=== PATIENT | female | born 1955 | race Caucasian/White ===

== ENCOUNTER 2023-07-05 13:01 | Outpatient (AMB) | payer MEDICARE, SELFPAY ==
--- NOTE | 2023-07-05 13:03 | MHC.OFFWIV ---
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) Intake Note: pt is here today for lft ear infection started Allergies Penicillins Adverse Reaction (Mild, Verified 07/05/23 13:03) UPSET STOMACH Do you need a note to return to daycare/school/sports/work: No Physical Exam Vital Signs: Last Vital Signs Temp 98.0 F 07/05/23 13:09 Pulse 118 H 07/05/23 13:09 BP 140/80 H 07/05/23 13:09 Pulse Ox 96 07/05/23 13:09 Oxygen Delivery Method Room Air 07/05/23 13:09 Office Procedures Cerumen Removal From which ear canal was the cerumen removed: left Removal: irrigation and otoscope w/curette Notes: patient tolerated procedure well [id number] Wax Removal by Spoon/Curette Assessment & Plan Assessment & Plan (1) Decreased hearing of left ear: Code(s): H91.92 - Unspecified hearing loss, left ear Plan: On my exam of the ear, there is partial accumulation of wax with a ear canal which is congested. When we were about to clean it, patient reports she has a prior history of TM rupture and is on abx from her PCP who saw her last week. No ear lavage was done. Patient was advised to follow up with her PCP and get an ENT referral. Orders: Orders AMB Cerumen Removal Today H61.23 - Impacted cerumen, bilateral Coding Level of Care Code Est Pt Level 3 (37692) Diagnoses Decreased hearing of left ear H91.92 CPT Codes Office Procedure - CPT: 98278-Jjk Wax Removal by Spoon/Curette ([id number])
[2023-07-05 13:09] VITALS: BP 140/80; PULSE 118; TEMP 36.7; O2SAT 96
== END 2023-07-05 14:21 | disposition home or self-care (01) ==
PROVIDERS: PCP Hospitalist; Visit Provider Internal Medicine
DX: H91.92 Unspecified hearing loss, left ear (principal)
CPT/HCPCS: 69210; 99213

== ENCOUNTER 2023-08-06 11:37 | Outpatient (AMB) | payer MEDICARE, SELFPAY ==
--- NOTE | 2023-08-06 11:42 | AM.OFFWIN_ITS ---
Intake Vital Signs 08/06/23 11:43 Height 5 ft 6 in Weight 219 lb BMI 35.3 BP 140/80 H Blood Pressure Location Lt brachial Position Sitting Pulse 120 H Pulse Source Pulse Oximeter Temp 98.3 F Temp Source Temporal Artery Scan Pulse Oximetry (%) 96 Oxygen Delivery Method Room Air Intake Visit Reasons: EP Sore throat, Cough, Headache Intake Note: pt is here today for sore throat cough headache started 2 days ago Patient Tobacco Use Status: Never used Tobacco Allergies Penicillins Adverse Reaction (Mild, Verified 08/06/23 11:47) UPSET STOMACH Medication List - Last Reconciled 08/06/23 by Mao Sherwood MD amlodipine 5 mg PO DAILY metformin 1,000 mg PO BID sertraline 50 mg PO DAILY Do you need a note to return to daycare/school/sports/work: No HPI EP Sore throat, Cough, Headache HPI0 Details Patient presents for a sick visit. Reporting symptoms of sinus congestion, sore throat and difficulty swallowing. Low-grade fever. No family member is sick. No recent travel. Patient reports symptoms of malaise and fatigue. PFSH Social History Patient Tobacco Use Status: Never used Tobacco Physical Exam Vital Signs: Last Vital Signs Temp 98.3 F 08/06/23 11:43 Pulse 120 H 08/06/23 11:43 BP 140/80 H 08/06/23 11:43 Pulse Ox 96 08/06/23 11:43 Oxygen Delivery Method Room Air 08/06/23 11:43 BMI result Body Mass Index 35.3 Const General: cooperative and healthy appearing Nutritional Appearance: well nourished Orientation/consciousness: patient oriented x3 Limitations: no limitations HEENT Head: Yes normal to inspection Eyes General: appearance normal, both eyes and all related structures Neck Neck: Yes normal visual inspection Chest Chest palpation & inspection: normal palpation of entire chest wall Resp Effort & Inspection: normal respiratory effort Neuro General: patient oriented x3 Assessment & Plan Assessment & Plan (1) Upper respiratory tract infection: Code(s): J06.9 - Acute upper respiratory infection, unspecified Plan: Antibiotics ordered. Increase fluid intake. Tylenol for aches and pains. If symptoms worsen, follow-up here for a recheck. Coding Level of Care Code Est Pt Level 3 (63731) Diagnoses Upper respiratory tract infection J06.9
[2023-08-06 11:43] VITALS: BP 140/80; PULSE 120; TEMP 36.8; O2SAT 96; BMI 35.3
== END 2023-08-06 12:53 | disposition home or self-care (01) ==
PROVIDERS: PCP Hospitalist; Visit Provider Internal Medicine
DX: J06.9 Acute upper respiratory infection, unspecified (principal)
CPT/HCPCS: 99213

== ENCOUNTER 2023-08-06 16:23 | Outpatient (REF) | payer MEDICARE, SELFPAY ==
[2023-08-06 17:06] LABS: Influenza A PCR NEGATIVE (Negative); Influenza B PCR NEGATIVE (Negative); Resp Syncy Virus RNA Qual PCR NEGATIVE (Negative); SARS COV2 PCR INHOUSE NEGATIVE (Negative)
== END 2023-08-06 16:24 | disposition home or self-care (01) ==
LOC: HO.LNP 16:23
PROVIDERS: Visit Provider Internal Medicine
DX: R43.9 Unspecified disturbances of smell and taste (principal); Z11.52 Encounter for screening for COVID-19; Z20.828 Contact with and (suspected) exposure to other viral communicable diseases
CPT/HCPCS: 0241U

== ENCOUNTER 2024-05-01 09:38 | Outpatient (AMB) | payer MEDICARE, SELFPAY ==
--- OUTSIDE RECORDS SUMMARY | 2024-05-01 09:39 | XMS_ITS | Continuity of Care Document ---
Author Organization [facility] Address [address] [place] [address]- Care Team Providers Care Government Property Inspector Name Role Phone Roseline Gillette Primary Care Physician Encounter [facility] [place] Date(s): 03/03/24 - 04/02/24 [facility] [address] [place] [address]- Encounter Type: Triage Allergies, Adverse Reactions, Alerts No Known Allergies Immunizations Given and Recorded Vaccine Date Status Refusal Reason influenza virus vaccine, inactivated 01/20/24 Rico rded influenza virus vaccine, inactivated 1 02/10/23 Gi romaine influenza virus vaccine, inactivated 02/10/22 Give n influenza virus vaccine, inactivated 02/21/21 Rico rded influenza virus vaccine, inactivated 2 02/07/20 Gi romaine influenza virus vaccine, inactivated 02/23/18 Rico rded influenza virus vaccine, inactivated 02/20/18 Rico rded influenza virus vaccine, inactivated 02/10/17 Give n influenza virus vaccine, inactivated 3 02/20/16 Re corded influenza virus vaccine, inactivated 4 03/30/15 Gi romaine SARS-CoV-2(COVID-19)mRNA-LNP vac([id number]) 01/20/24 Recorded SARS-CoV-2(COVID-19)mRNA-LNP vac([id number]) 01/20/23 Recorded [id number] 12y+ bivalent booster vax 02/19/22 Recorded SARS-CoV-2 mRNA ([id number]) vax 10/27/21 Recorded SARS-CoV-2 (COVID-19) mRNA BNT-162b2 vac 03/07/21 Recorded SARS-CoV-2 (COVID-19) mRNA BNT-162b2 vac 08/03/20 Recorded SARS-CoV-2 (COVID-19) mRNA BNT-162b2 vac 07/13/20 Recorded Influenza Virus Vaccine (oldterm) 5 03/14/19 Recor ded tetanus-diphtheria toxoids (Td) 04/19/18 Recorded zoster vaccine, inactivated 11/17/17 Recorded zoster vaccine, inactivated 08/12/17 Recorded pneumococcal 23-valent vaccine 08/11/12 Given Fluarix (oldterm) 6 02/13/11 Given Tet/diphth/pertussis, acel (oldterm) 7 12/29/10 Gi romaine 1Result Comment: [facility]: [id number] 2Result Comment: [id number] 3Result Comment: [02/21/2016] [facility] 4Admin Note: Grace 5Result Comment: Grace 6Admin Note: REFUSED 7Admin Note: 7-10 AT OLD PCP OFFICE Medications amLODIPine 5 mg oral tablet 1 tablet, By Mouth, Daily, # 90 tablet, 0 Refills, Maintenance, 01/29/24 6:25:00 AM EDT, [id number], 166, cm, 07/08/23 9:20:00 EST, Height Start Date: 01/29/24 Status: Ordered Quantity: 90.0 Unit: tablet Repeat number: 1 FreeStyle Lite Glucometer FreeStyle Lite Glucometer, See Instructions, # 1 each, Refills 0, Tot. Refills 0, Maintenance, Dx: Diabetic type 2 (E11.9) Use to check blood sugars twice a day, 01/27/23 3:40:00 PM EDT, Supply, 166, cm, 08/11/22 14:39:00 EDT, Height Start Date: 01/27/23 Status: Ordered Quantity: 1.0 Unit: each Repeat number: 1 FreeStyle Lite Lancets FreeStyle Lite Lancets, See Instructions, # 100 each, Refills 11, Tot. Refills 11, Maintenance, Dx:Diabetic type 2 (E11.9) Use to check blood sugars twice a day, 01/27/23 3:40:00 PM EDT, Supply, 166,cm, 08/11/22 14:39:00 EDT, Height Start Date: 01/27/23 Status: Ordered Quantity: 100.0 Unit: each Repeat number: 12 FreeStyle Lite Test Strips FreeStyle Lite Test Strips, See Instructions, # 100 each, Refills 11, Tot. Refills 11, Maintenance,Dx: Diabetic type 2 (E11.9) Use to check blood sugars twice a day, 01/27/23 3:40:00 PM EDT, Supply, 166, cm, 08/11/22 14:39:00 EDT, Height Start Date: 01/27/23 Status: Ordered Quantity: 100.0 Unit: each Repeat number: 12 hydrochlorothiazide-losartan 25 mg-100 mg oral tablet 1 tablet, By Mouth, Daily, # 90 tablet, 3 Refills, Maintenance, 02/10/23 12:56:00 PM EDT, [facility] #[id number], 1 tablet By Mouth Daily, 166, cm, 02/10/23 12:44:00 EDT, Height Start Date: 02/10/23 Status: Ordered Quantity: 90.0 Unit: tablet Repeat number: 4 hydrOXYzine hydrochloride 50 mg oral tablet 2 tablet = 100 mg, By Mouth, Daily at bedtime, # 180 tablet, 3 Refills, Maintenance, 03/23/24 10:40:00 AM EST, [facility] #[id number], 166, cm, 03/23/24 10:26:00 EST, Height Start Date: 03/23/24 Stop Date: 03/18/25 Status: Ordered Quantity: 180.0 Unit: tablet Repeat number: 4 levothyroxine 0.2 mg oral tablet See Instructions, TAKE 1 TABLET BY MOUTH EVERY DAY AND TAKE 2 TABLETS ON MONDAYS, # 112 tablet, 0 Refills, Maintenance, 12/09/23 10:11:00 AM EDT, [facility] #[id number], 166, cm, 07/08/23 9:20:00 EST, Height Start Date: 12/09/23 Status: Ordered Quantity: 112.0 Unit: tablet Repeat number: 1 metFORMIN 1000 mg oral tablet 1 tablet, By Mouth, 2 times a day, # 180 tablet, 0 Refills, Maintenance, 01/06/24 8:53:00 AM EDT, [facility] #[id number], 166, cm, 07/08/23 9:20:00 EST, Height Start Date: 01/06/24 Status: Ordered Quantity: 180.0 Unit: tablet Repeat number: 1 Metoprolol Succinate ER 100 mg oral tablet, extended release 1 tablet = 100 mg, By Mouth, Daily, # 90 tablet, 3 Refills, Maintenance, 08/11/22 2:59:00 PM EDT, [facility] #[id number], 166, cm, 08/11/22 14:39:00 EDT, Height Start Date: 08/11/22 Stop Date: 08/06/23 Status: Ordered Quantity: 90.0 Unit: tablet Repeat number: 4 One Touch Ultra 2 Glucose Meter See Instructions, # 1 each, Refills 0, Tot. Refills 0, Maintenance, CHECK BLOOD SUGARS TWICE A DAY DM TYPE 2 E11.9, 08/04/21 10:32:00 AM EDT, [facility], 166, cm, 08/04/21 10:16:00 EDT, Height Start Date: 08/04/21 Status: Ordered Quantity: 1.0 Unit: each Repeat number: 1 One Touch Ultra Test Strips See Instructions, # 100 each, Refills 0, Tot. Refills 0, Maintenance, CHECK BLOOD SUGARS TWICE A DAY DM TYPE 2 E11.9, 09/04/21 12:03:00 PM EDT, [facility], 166, cm, 08/04/21 10:16:00 EDT, Height Start Date: 09/04/21 Status: Ordered Quantity: 100.0 Unit: each Repeat number: 1 One Touch Ultra Test Strips See Instructions, # 300 each, Refills 1, Tot. Refills 1, Maintenance, CHECK BLOOD SUGARS TWICE A DAY DM TYPE 2 E11.9, 08/11/22 2:58:00 PM EDT, [facility], 166, cm, 08/11/22 14:39:00 EDT, Height Start Date: 08/11/22 Status: Ordered Quantity: 300.0 Unit: each Repeat number: 2 One Touch UltraSoft Lancets See Instructions, # 100 each, Refills 0, Tot. Refills 0, Maintenance, CHECK BLOOD SUGARS TWICE A DAY DM TYPE 2 E11.9, 08/04/21 10:32:00 AM EDT, [facility], 166, cm, 08/04/21 10:16:00 EDT, Height Start Date: 08/04/21 Status: Ordered Quantity: 100.0 Unit: each Repeat number: 1 ONE TOUCH ULTRASOFT LANCETS 100'S ONE TOUCH ULTRASOFT LANCETS 100'S, See Instructions, # 100 each, 0 Refills, TEST BLOOD SUGAR TWICE DAILY, 166, cm, 08/04/21 10:16:00 EDT, Height Start Date: 09/04/21 Status: Ordered Quantity: 100.0 Unit: each Repeat number: 1 triamcinolone 0.1% topical cream 1 application, Topically, 2 times a day, # 60 Gm, 0 Refills, Maintenance, 03/23/24 10:49:00 AM EST,Cream, [facility] #[id number], Partial fill upon patient request if the prescription is for a schedule II opioid drug., 1 application Topically 2 times a day,x14 days, 166, cm, 03/23/24 10:26:00EST, Height Start Date: 03/23/24 Stop Date: 04/06/24 Status: Ordered Quantity: 60.0 Unit: g Repeat number: 1 Problem List Condition Confirmation Course Effective Dates Status Health Status Informant Anxiety Confirmed Active Claustrophobia Confirmed Active Diabetes mellitus type II Confirmed Active History of pericardial effusion - viral Confirmed Active Hypercholesterolemia Confirmed 08/11/12 Active Hypertension Confirmed Active Hypothyroidism Confirmed Active Moderate major depression Confirmed Active Morbid obesity Confirmed Active Severe obesity (BMI 35.0-39.9) with comorbidity Confirmed Active Social History Social History Type Response Smoking Status Never smoker entered on: 08/23/13 Sex Sex Representation Female (finding) Patient Care team information Care Team Personnel Name: Roseline Gillette Position: [facility] PCO Associate Professional Member Role: PCP Address: [address] [place] [address]- Telecom: Care Team Related Persons Name: IZABEL FAIRBANKS Name: NICHOLE FLOREZ Insurance Providers Guarantor name: EVERETTE FAIRBANKS Health Plan Information #: 1 Payer: [employer] ADV PPO Member Number: NA Policy Number: NA Group Number: [id number]
--- NOTE | 2024-05-01 10:23 | MHC.OFFWIV ---
Intake Vital Signs 05/01/24 10:25 Height 5 ft 6 in Weight 216 lb BMI 34.9 BP 122/84 Blood Pressure Location Lt brachial Position Sitting Pulse 77 Pulse Source Pulse Oximeter Temp 98.7 F Temp Source Oral Pulse Oximetry (%) 98 Oxygen Delivery Method Room Air Intake Visit Reasons: EP sore throat, cough, congestion, wheezing Intake Note: Patient here for sore throat, cough, congestion, SOB, fatigue that started on Wednesday. Patient Tobacco Use Status: Never used Tobacco Allergies Penicillins Adverse Reaction (Mild, Verified 05/01/24 10:25) UPSET STOMACH Do you need a note to return to daycare/school/sports/work: No HPI EP sore throat, cough, congestion, wheezing HPI Details This note is constructed using voice recognition software. While every effort has been made to ensure accuracy, loan operations manager errors may have been included. The patient is a 68 year old female who presents to the clinic today with sore throat, cough, congestion for the past 6 days. She notes a low-grade fever 99.3. She denies shortness of breath, body aches. [facility] Social History Patient Tobacco Use Status: Never used Tobacco Review of Systems Const All systems reviewed & are unremarkable except as noted in HPI and below Physical Exam Vital Signs: Last Vital Signs Temp 98.7 F 05/01/24 10:25 Pulse 77 05/01/24 10:25 BP 122/84 05/01/24 10:25 Pulse Ox 98 05/01/24 10:25 Oxygen Delivery Method Room Air 05/01/24 10:25 BMI result Body Mass Index 34.9 Const General: cooperative, healthy appearing, comfortable and no acute distress Orientation/consciousness: patient oriented x3 Limitations: no limitations HEENT Head: Yes normal to inspection Ears: hearing grossly normal bilaterally, external ears normal and TM's normal bilaterally General nose exam: Normal external nose present, Normal nares present and No nasal discharge present Face and sinus: Yes normal facial exam and Yes sinuses nontender Mouth: Normal oral and palatal mucosa present and moist mucous membranes Throat: Yes tonsils normal, Yes uvula midline and Yes posterior oropharynx abnormal (Erythema) Eyes General: appearance normal, both eyes and all related structures Neck Neck: Yes normal visual inspection Resp Effort & Inspection: normal respiratory effort, able to speak in complete sentences, Actively coughing, no respiratory distress, not tachypneic, no tripod positioning and no use of accessory muscles Auscultation: clear to auscultation bilaterally Cardio Jugular venous distension: no JVD Rate: regular rate Rhythm: regular rhythm Heart sounds: S1 normal heart sound present, S2 normal heart sound present, no click, no gallops, no murmurs and no rubs Skin General skin exam: no rashes or lesions noted, elasticity normal and turgor normal Neuro General: patient oriented x3 Extrem General: Yes normal to inspection and Yes no clubbing, cyanosis or edema Assessment & Plan Assessment & Plan (1) Upper respiratory tract infection: Code(s): J06.9 - Acute upper respiratory infection, unspecified Qualifiers: URI type: unspecified URI Qualified Code(s): J06.9 - Acute upper respiratory infection, unspecified Plan: In office rapid strep test negative. Viral swab obtained to rule out Covid, Influenza, and RSV based on symptoms. Advised mask wearing while symptomatic and quarantine per current CDC guidelines. Reviewed at home support methods including hydration, humidification, vix vapor rub, sinus rinse, and otc treatment options. Discussed treatment with antiviral therapy for covid with paxlovid and with Tamiflu for influenza, including appropriate use and side effects, and need to start medication within 5 day of symptom onset, preferably within 48 hours of symptom onset. Patient is outside of treatment window. Benzonatate prescription sent to requested pharmacy for symptomatic management of cough. Advised follow up with worsening symptoms such as dyspnea at rest, which would require emergent evaluation. Plan See above for full details and plan. Orders: Orders SARS-CoV2/FLU/RSV Today J06.9 - Acute upper respiratory infection, unspecified Medications: New benzonatate 100 mg PO TID 5 days PRN 15 caps 0RF Cough Coding Level of Care Code Est Pt Level 3 (68810) Diagnoses Upper respiratory tract infection, unspecified type J06.9 URI type: unspecified URI
[2024-05-01 10:25] VITALS: BP 122/84; PULSE 77; TEMP 37.1; O2SAT 98; BMI 34.9
== END 2024-05-01 11:00 | disposition home or self-care (01) ==
PROVIDERS: PCP Hospitalist; Visit Provider Registered Nurse
DX: J06.9 Acute upper respiratory infection, unspecified (principal)

== ENCOUNTER 2024-05-01 09:38 | Outpatient (REF) | payer MEDICARE, SELFPAY ==
[2024-05-01 16:08] LABS: Influenza A PCR NEGATIVE (Negative); Influenza B PCR NEGATIVE (Negative); Resp Syncy Virus RNA Qual PCR NEGATIVE (Negative); SARS COV2 PCR INHOUSE NEGATIVE (Negative)
== END 2024-05-01 09:39 | disposition home or self-care (01) ==
LOC: HO.LAB 09:38
PROVIDERS: PCP Hospitalist; Visit Provider Registered Nurse
DX: J06.9 Acute upper respiratory infection, unspecified (principal)
CPT/HCPCS: 0241U; 99212

== ENCOUNTER 2024-09-06 11:22 | Outpatient (AMB) | payer MEDICARE, SELFPAY ==
--- NOTE | 2024-09-06 11:34 | MHC.OFFWIV ---
Intake Vital Signs 09/06/24 11:41 BP 110/70 Blood Pressure Location Rt brachial Position Sitting Pulse 100 Pulse Source Pulse Oximeter Temp 98.5 F Temp Source Oral Pulse Oximetry (%) 99 Oxygen Delivery Method Room Air Intake Visit Reasons: EP stomach pain, diarrehea, fever Intake Note: Patient here for headaches, diarrhea and stomach pain that has been present for a couple of days. Patient Tobacco Use Status: Never used Tobacco Allergies Penicillins Adverse Reaction (Mild, Verified 09/06/24 11:40) UPSET STOMACH Do you need a note to return to daycare/school/sports/work: No HPI HPI Comments History of Present Illness Details She presents to office with abdominal complaint She states sharp abdominal pain R sided headache Slight lightheadedness without syncope or LOC Ongoing x 1 weeks Occured after she got shingle vaccination She had a bad reaction with skin redness/swelling; symptoms there have resolved States symptoms worse in am and better in afternoon Bowel movements are loose No blood or melena + nausea without vomiting Pt said appetite poor due to having diarrhea Pt denies abdominal surgery or hx of similar symptoms Diabetic and sugars slighltly high Denies sick contacts Pt denies fever but is always cold Patient tried Iberogast without resolution PFSH Social History Patient Tobacco Use Status: Never used Tobacco Review of Systems Const Reports chills, Reports fatigue, Denies fever(s), Denies frequent falls, Denies night sweats and Reports poor appetite Eyes Denies change in vision ENT Reports dizziness, Denies ear discharge, Denies otalgia, Denies nasal congestion, Denies sore throat and Reports other (permanent hearing loss R side) Card Denies chest pain, Denies syncope and Denies dyspnea Resp Denies cough and Denies dyspnea GI Reports abdominal pain, Denies melena, Denies hematochezia, Denies constipation, Reports loose stools, Reports nausea and Denies vomiting Denies difficulty voiding Musc Denies back pain Skin/Breast Denies rash Neuro Reports dizziness, Denies syncope, Denies frequent falls, Denies focal weakness and Denies paresthesias Endo Reports fatigue Physical Exam Vital Signs: Last Vital Signs Temp 98.5 F 09/06/24 11:41 Pulse 100 09/06/24 11:41 BP 110/70 09/06/24 11:41 Pulse Ox 99 09/06/24 11:41 Oxygen Delivery Method Room Air 09/06/24 11:41 General: Non-toxic, NAD. Speaking full sentences. Skin: Warm dry throughout Eye: PERRL, EOMI HENT: Airway patent. Uvula midline. No pharyngeal erythema or edema. 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 Bilateral canals clear. TM non-erythematous, non-bulging. No TM perforation or hemotympanum noted. Respiratory: CTA bilaterally. No wheezes, rales or rhonchi Cardiac: RRR. No murmur Abdominal: BS present. Non-tender throughout to light palpation. Minimal ttp epigastric region with deep palpation. No palpable masses. No abdominal distention or pusatile mass. MSK:Moving extremities without deficit Neurology: Alert. No aphasia or facial droop. Gait without abnormality Psych: Good mood and affect Assessment & Plan Assessment & Plan (1) Diarrhea: Code(s): R19.7 - Diarrhea, unspecified Qualifiers: Diarrhea type: unspecified type Qualified Code(s): R19.7 - Diarrhea, unspecified Plan: Patient seen and evaluated. Abdomen soft, non-distended without ttp deep. No concern acute abdomen at this time Vitals signs stable GI panel ordered Discussed Imodium use Zofran prn nausea Increase fluids and bland diet ER s/s discussed such as presyncope, persistent abdominal pain, blood/melena, CP, SOB etc Patient gave verbal understanding and had no additional questions or concerns at time of discharge All questions answered Orders: Orders GI Panel Today R19.7 - Diarrhea, unspecified Medications: New ondansetron 4 mg PO Q8H PRN 5 tabs 0RF nausea and vomiting Coding Level of Care Code Est Pt Level 3 (20278) Diagnoses Diarrhea, unspecified type R19.7 Diarrhea type: unspecified type
[2024-09-06 11:41] VITALS: BP 110/70; PULSE 100; TEMP 36.9; O2SAT 99
== END 2024-09-06 12:13 | disposition home or self-care (01) ==
PROVIDERS: PCP Hospitalist; Visit Provider Physician Assistant
DX: R19.7 Diarrhea, unspecified (principal)

== ENCOUNTER → 2024-09-06 11:22 | Outpatient (BNVA) | payer MEDICARE, SELFPAY | PROVIDERS: PCP Hospitalist; Visit Provider Physician Assistant | DX: R19.7 Diarrhea, unspecified (principal) | CPT/HCPCS: 99212 ==

== ENCOUNTER 2024-09-07 07:30 | Outpatient (REF) | payer MEDICARE, SELFPAY ==
[2024-09-07 12:15] LABS: Adenovirus F 40/41 Not Detected (Not Detect.); Astrovirus Not Detected (Not Detect.); Campylobacter Not Detected (Not Detect.); Cryptosporidium Not Detected (Not Detect.); Cyclospora cayetanensis Not Detected (Not Detect.); E. coli EAEC Not Detected (Not Detect.); E. coli EPEC Detected (Not Detect.); E. coli ETEC Not Detected (Not Detect.); E. coli STEC Not Detected (Not Detect.); Entamoeba histolytica Not Detected (Not Detect.); Giardia lamblia Not Detected (Not Detect.); Norovirus GI/GII Not Detected (Not Detect.); Plesiomonas shigelloides Not Detected (Not Detect.); Rotavirus A Not Detected (Not Detect.); Salmonella Not Detected (Not Detect.); Sapovirus Not Detected (Not Detect.); Shigella sp./EIEC Not Detected (Not Detect.); Vibrio Not Detected (Not Detect.); Vibrio Cholerae Not Detected (Not Detect.); Yersinia enterocolitica Not Detected (Not Detect.)
== END 2024-09-07 07:31 | disposition home or self-care (01) ==
LOC: HO.HMGCLNP 07:30
PROVIDERS: Visit Provider Physician Assistant
DX: R19.7 Diarrhea, unspecified (principal)
CPT/HCPCS: 87507

== ENCOUNTER 2025-02-26 10:00 | Outpatient (REF) | payer MEDICARE, SELFPAY ==
--- NOTE | ~2025-02-26 | XR_ITS ---
EXAMINATION: XR HUMERUS RIGHT HISTORY: M79.601 - Pain in right arm COMPARISON: There are no prior studies available for comparison. FINDINGS: AP and lateral views of the right forearm are submitted. Osseous mineralization is normal. There is no fracture or dislocation. The glenohumeral joint is intact. There is mild degenerative change at the elbow. The soft tissues are unremarkable. XR/XR humerus RT IMPRESSION: No evidence of fracture of the right humerus. Electronically signed by: Jayy Jauregui MD 02/26/2025 11:57 AM EDT
== END 2025-02-26 10:01 | disposition home or self-care (01) ==
LOC: HO.HMGCX 10:00
PROVIDERS: PCP Hospitalist; Visit Provider Physician Assistant Medical
DX: S46.311A Strain of muscle, fascia and tendon of triceps, right arm, initial encounter (principal); X50.0XXA Overexertion from strenuous movement or load, initial encounter; Y93.F2 Activity, caregiving, lifting
CPT/HCPCS: 73060; 99212

== ENCOUNTER 2025-02-26 10:00 | Outpatient (AMB) | payer MEDICARE, SELFPAY ==
--- NOTE | 2025-02-26 10:54 | MHC.OFFWIV ---
Intake Vital Signs 02/26/25 10:55 Height 5 ft 6 in Weight 200 lb BMI 32.3 BP 140/66 H Blood Pressure Location Lt brachial Position Sitting Pulse 98 Pulse Source Pulse Oximeter Temp 98 F Temp Source Oral Pulse Oximetry (%) 95 Oxygen Delivery Method Room Air Intake Visit Reasons: EP injured right arm Intake Note: Patient presents with c/o left upper arm pain x3 days - patient states she was moving a lot of crates earlier in the week Patient Tobacco Use Status: Never used Tobacco Allergies Penicillins Adverse Reaction (Mild, Verified 02/26/25 10:57) UPSET STOMACH Do you need a note to return to daycare/school/sports/work: Yes HPI HPI Comments History of Present Illness Details History of Present Illness - The patient is a 69-year-old female presenting with right upper arm pain following physical activity involving lifting boxes. - The pain began on Wednesday after moving boxes on Wednesday and Wednesday. - The pain is localized to the triceps area of the right arm, with no numbness or tingling. - The patient reports difficulty lifting the arm and pain with pressure, but maintains full range of motion. - The patient attempted self-treatment with lidocaine patches and Tylenol, which were ineffective. - The patient has a history of adverse reactions to muscle relaxants and prefers not to use them. 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 - She is right hand dominant. Physical Exam General: Cooperative, healthy appearing, comfortable, no acute distress and well developed Orientation: Patient oriented x3 Limitations: Limited movement in the right upper arm Respiratory: Normal respiratory effort and able to speak in complete sentences. Clear to auscultation bilaterally Cardiovascular: Regular rate and rhythm. Normal S1 and S2. No m/r/g noted. Pulses are 2+ on the UE. Skin: No rashes or lesions noted. No bruising noted. Neuro: Sensation is intact Extremities: normal to inspection. Decrease ROM of the right arm due to pain. Passive ROM of the right arm is intact. No TTP of the right shoulder. No click noted. TTP of the posterior upper arm. FROM of the right elbow and wrist. No TTP of the elbow, forearm, wrist or hand. Hand conference center manager is intact. Patient was informed and verbally consented to the use of an ambient scribe for clinic note documentation during this visit. [facility] Social History Patient Tobacco Use Status: Never used Tobacco Review of Systems Const All systems reviewed & are unremarkable except as noted in HPI and below Physical Exam Vital Signs: Last Vital Signs Temp 98 F 02/26/25 10:55 Pulse 98 02/26/25 10:55 BP 140/66 H 02/26/25 10:55 Pulse Ox 95 02/26/25 10:55 Oxygen Delivery Method Room Air 02/26/25 10:55 BMI result Body Mass Index 32.3 Assessment & Plan Assessment & Plan (1) Right arm pain: Code(s): M79.601 - Pain in right arm Plan Most likely a muscle strain vs tendonitis vs fracture plan - rest, ice or heat to the area - activities as tolerated - will order an x-ray - recommend a sling for comfort - naproxen BID for pain - pt did not want a muscle relaxer as she does not do well with them - follow up with PCP Orders: Orders XR humerus RT Today M79.601 - Pain in right arm Medications: New naproxen 500 mg PO Q12H PRN 20 tabs 0RF pain 7 days Coding Level of Care Code Est Pt Level 4 (98110) Diagnoses Right arm pain M79.601
[2025-02-26 10:55] VITALS: BP 140/66; PULSE 98; TEMP 36.6; O2SAT 95; BMI 32.3
== END 2025-02-26 11:39 | disposition home or self-care (01) ==
PROVIDERS: PCP Hospitalist; Visit Provider Physician Assistant Medical
DX: M79.601 Pain in right arm (principal)

== ENCOUNTER → 2025-02-26 11:45 | Outpatient (BNV) | payer MEDICARE, SELFPAY | PROVIDERS: PCP Hospitalist; Visit Provider Radiology Diagnostic Radiology | DX: M79.601 Pain in right arm (principal) | CPT/HCPCS: 73060 ==